=== PATIENT | male | born 1945 | race Caucasian/White ===

== ENCOUNTER 2017-08-22 08:52 | Outpatient (CLI) | payer OTHER | END 2017-08-22 08:58 | disposition home or self-care (01) | LOC: TOM 08:52 | DX: R13.14 Dysphagia, pharyngoesophageal phase (principal); J32.8 Other chronic sinusitis; J01.81 Other acute recurrent sinusitis ==

== ENCOUNTER 2017-08-22 09:00 | Outpatient (CLI) | payer OTHER | END 2017-08-22 09:03 | disposition home or self-care (01) | LOC: RX STUDY 09:00 | DX: R13.14 Dysphagia, pharyngoesophageal phase (principal); J32.8 Other chronic sinusitis; J01.81 Other acute recurrent sinusitis ==

== ENCOUNTER 2024-08-15 12:31 | Outpatient (CLI) | payer OTHER ==
[2024-08-15 13:14] LABS: HEMATOCRIT 42.1 % (39.0-48.0); HEMOGLOBIN 14.1 g/dL (13-16.00); MEAN CELL VOLUME 97.7 fL (80.0-100.00); MEAN CORPUSCULAR HEMOGLOBIN 32.8 pg (27.00-32.0); MEAN CORPUSCULAR HGB CONC 33.6 g/dl (32.0-36.0); PLATELET COUNT 197 K/uL (150-450); RED BLOOD COUNT 4.31 M/uL (4.00-6.00); RED CELL DISTRIBUTION WIDTH 13.9 % (11.5-14.5)
[2024-08-15 13:51] LABS: ALBUMIN 3.4 gm/dL (3.4-5.0); BILIRUBIN TOTAL 0.4 mg/dL (0.3-1.2); CREATININE SERUM 1.4 mg/dL (0.70-1.30); GFR 48.76; GLOBULINA 3.4 G/DL (2.4-3.5); POTASSIUM 4.85 mEq/L (3.5-5.1); TOTAL PROTEIN 6.8 gm/dL (6.4-8.2)
[2024-08-15 15:35] LABS: MYCOPLASMA PNEUMONIAE IGM NON REACTIVE (NO REACTIVE)
== END 2024-08-15 12:45 | disposition home or self-care (01) ==
LOC: LAB 12:31
DX: J06.9 Acute upper respiratory infection, unspecified (principal); Z20.828 Contact with and (suspected) exposure to other viral communicable diseases; R53.81 Other malaise

== ENCOUNTER 2024-10-26 07:25 | Outpatient (CLI) | payer OTHER ==
[2024-10-26 09:15] LABS: BILIRUBIN TOTAL 0.69 mg/dL (0.3-1.2); CALCIUM 9.6 mg/dL (8.5-10.1); CREATININE SERUM 1.37 mg/dL (0.70-1.30); GFR 49.87; GLOBULINA 3.4 G/DL (2.4-3.5); POTASSIUM 4.57 mEq/L (3.5-5.1); TOTAL PROTEIN 7.4 gm/dL (6.4-8.2)
== END 2024-10-26 07:27 | disposition home or self-care (01) ==
LOC: LAB 07:25
DX: N18.9 Chronic kidney disease, unspecified (principal)